=== PATIENT | male | born 1970 | race Caucasian/White ===

== ENCOUNTER → 2016-07-15 | Outpatient (CLI) | payer BC ==
[~2016-07-15] MED LIST: ASPCH81X PO; HYDR-5688 PO
[2016-07-15 18:45] LABS: HEMATOCRIT 41.2 % (42-52); MEAN CELL VOLUME 91.6 fL (80-100); MEAN CORPUSCULAR HEMOGLOBIN 31.1 pg (25-34); MEAN PLATELET VOLUME 10.4 fL (7.4-10.4); PLATELET COUNT 204 K/uL (130-400); WHITE BLOOD COUNT 5.17 K/uL (4.8-10.8)
[2016-07-15 19:12] LABS: BLOOD UREA NITROGEN 20 mg/dl (7-18); BUN/CREATININE RATIO 16.7 (10-20); CALCIUM 8.3 mg/dl (8.5-10.1); CARBON DIOXIDE 31 mmol/L (21-32); CHLORIDE 106 mmol/L (98-107); GLUCOSE 72 mg/dl (70-99); POTASSIUM 4.2 mmol/L (3.5-5.1); SODIUM 144 mmol/L (136-145)
[2016-07-15 21:03] LABS: BASO % 0.6 %; BASO ABS # 0.03 K/uL (0-0.2); COMPLETE YES; EOS % 4.8 %; LYMPH % 51.8 %; LYMPH ABS # 2.68 K/uL (1.2-3.4); MONO % 8.3 %; NEUT % 34.5 %
== END | disposition home or self-care (01) ==
LOC: C.LAB 18:15
PROVIDERS: ATTEND Surgery
DX: K40.90 Unilateral inguinal hernia, without obstruction or gangrene, not specified as recurrent (principal)

== ENCOUNTER → 2016-07-23 | Day surgery (SDC) | payer BC ==
[2016-07-13 07:35] VITALS: Ht 182.9 cm; Wt 79.5 kg
[~2016-07-23] VITALS: Ht 182.9 cm; Wt 79.5 kg
[~2016-07-23] MED LIST changes: +ATROPINE SULFATE 0.1 MG/ML 5ML SYR IV PRN; +BUPIVACAINE/EPINEPHRINE 0.5% MPF 1:200,000 30 ML VIAL ONE; +CEFAZOLIN 2000 MG/60 ML D5W IV SCH; +DEXAMETHASONE SOD INJ 4 MG/ML VIAL ONE; +EpHEDrine SULFATE INJ 50 MG/ML AMP IV PRN; +FENTANYL CITRATE INJ 50 MCG/1 ML 2 ML VIAL ONE; +FLUMAZENIL 0.1 MG/1 ML 10 ML VIAL IV PRN; +HEPARIN SOD 5000 UNIT/0.5 ML CARP SQ SCH; +HYDROCODONE/ACETAMOPHEN 5/325MG TAB PO PRN; +HYDROmorphone INJ 1 MG/ML SYR IV PRN; +IBUPROFEN 200 MG TAB ONE; +IBUPROFEN 600 MG TAB PO PRN; +KETOROLAC TROMETHAMINE 30 MG/ML VIAL IV. PRN; +KETOROLAC TROMETHAMINE 30 MG/ML VIAL ONE; +LACTATED RINGER'S 1000ML 1,000 ML IV SCH; +LIDOCAINE HCL 2% 2 ML VIAL (20MG/ML) ONE; +MIDAZOLAM HCL 1 MG/ML 2ML VIAL ONE; +NALOXONE HCL 0.4 MG/1 ML VIAL/CARP IV PRN; +ONDANSETRON INJ 2 MG/ML 2 ML VIAL IV PRN; +ONDANSETRON INJ 2 MG/ML 2 ML VIAL ONE; +PROMETHAZINE HCL INJ 12.5 MG in SODIUM CHLORIDE 0.9% 50ML 50 ML IV PRN; +PROPOFOL IV EMULSION 10 MG/ML 20 ML VIAL IV ONE; +SODIUM CHLORIDE 0.9% 1000ML 1,000 ML IV SCH
--- NOTE | 2016-07-23 07:35 | History and Physical ---
History & Physical Date Jul 23, 2016. Chief Complaint right groin pain History of Present Illness The patient is a 45 year old male with complaints of right groin pain. Us shows RIH. Additional History Hepatic Disease: No Endocrine Disorder: No Kidney Disease: No Hypertension: No Heart Disease: No Bleeding Tendencies: No Infectious Diseases: No Allergies Coded Allergies: BEE STING (Verified Allergy, Unknown, ITCHING, 07/23/16) NO KNOWN DRUG ALLERGIES (Verified Allergy, Unknown, ., 07/23/16) Home Medications Scheduled Aspirin (Aspirin Chewable), 81 MG PO QAM Physical Examination Skin: warm/dry Eyes: normal inspection, EOMI ENT: normal ENT inspection Head: normocephalic Neck: supple, no adenopathy Respiratory/Chest: normal breath sounds, no respiratory distress Cardiovascular: regular rate, rhythm, no edema Abdomen / GI: normal bowel sounds, + pertinent finding (right inguinal hernia. reduced. ) Extremities: normal inspection Diagnosis right inguinal hernia Plan of Treatment open right inguinal hernia repair with mesh.
--- NOTE | 2016-07-23 08:49 | Discharge Instructions ---
Discharge Instructions Admission Reason for Admission: Right Inguinal Hernia Discharge Discharge Diagnosis / Problem: Right inguinal hernia Discharge Goals Goal(s): Decrease discomfort, Improve function Activity Recommendations Activity Limitations: as noted below Lifting Limitations: no more than 5 pounds Exercise/Sports Limitations: until after follow-up appointment May Resume Sexual Activity: after follow-up appointment Shower/Bathe: tomorrow . Instructions / Follow-Up Instructions / Follow-Up Please follow-up with Dr. Velasquez in 1-2 weeks. Current Hospital Diet Patient's current hospital diet: Discharge Diet Recommended Diet: Regular Diet Pending Studies Studies pending at discharge: no Medical Emergencies . Who to Call and When: Medical Emergencies: If at any time you feel your situation is an emergency, please call 911 immediately. . Non-Emergent Contact Non-Emergency issues call your: Primary Care Provider, Surgeon Call Non-Emergent contact if: temperature is above 101, wound has increased drainage, wound has increased redness . "Provider Documentation" section prepared by Mishel Damian. VTE Core Measure Inpt VTE Proph given/why not?: Unfractionated heparin SQ, SCD's
--- NOTE | 2016-07-23 08:52 | [facility] Operative Report ---
Operative Report Operative Date Jul 23, 2016. Pre-Operative Diagnosis Right Inguinal Hernia Post-Operative Diagnosis direct and indirect inguinal hernia Procedure(s) Performed open right inguinal hernia repair with mesh Surgeon Dr. Velasquez Community Engagement Specialist Surgeon(s) Devonte Damian PA-C Estimated Blood Loss 5 ML Findings direct and indirect induinal hernia Specimens None Anesthesia LMA Complication(s) None Disposition Recovery Room / PACU I attest to the content of the Intraoperative Record and any orders documented therein. Any exceptions are noted below.
--- NOTE | 2016-07-23 09:20 | OPERATIVE REPORT ---
DATE OF OPERATION: 07/23/2016 PREOPERATIVE DIAGNOSIS: Right inguinal hernia. POSTOPERATIVE DIAGNOSIS: Direct and indirect right inguinal hernia. PROCEDURE: Open right inguinal hernia repair with mesh. SURGEON: Dr. Velasquez. [employer]CR[employer] PRODUCT OWNER: Mishel Damian PA-C. ESTIMATED BLOOD LOSS: 5 mL COMPLICATION: No immediate. ANESTHESIA: General with laryngeal mask airway. OPERATIVE NOTE: After informed consent was obtained, the patient taken to the operating suite and placed in supine position. After successful placement of laryngeal mask airway, the lower groin was shaved and sterilely prepped and draped in usual fashion. An inguinal incision was made with a 15 blade scalpel and carried down through the soft tissue using electrocautery. The external oblique aponeurosis was skeletonized and a small incision made with a fresh blade. Metzenbaum scissors were used to extend this incision through the external ring as well as several centimeters proximally. Once in the inguinal canal, we were able to bluntly dissect the cord and cord structures away from surrounding tissue. I was able to use a blunt finger to elevate the cord structures off the pubic bone and placed a [place] drain around them. As soon as we did this, we noted a small to moderate sized direct inguinal hernia coming through the floor of the canal. We also inspected the cord structures and noted a fat-containing hernia sac as well coming down the cord structures. We were able to bluntly dissect this back to its base and then dunk it back into the abdominal cavity. A small 2-0 Vicryl stitch was placed to hold the reduced sac in place until we put the mesh in. A polypropylene pre-keyholed mesh was used as an onlay. It was secured distally to Kwame's ligament, laterally along the shelving portion of Poupart's ligament, and medially along the midline musculature. The "arms" of the mesh were wrapped around behind the cord and cord structures and secured to underlying muscle. Thorough irrigation was performed, there was adequate hemostasis after doing this. The mesh was tension free and did not impinge on the cord structures. We injected the periphery of the mesh with Marcaine for postoperative analgesia. A final irrigation was performed. The external oblique aponeurosis was closed using 2-0 Vicryl in a running fashion. Soft tissue was irrigated and closed using 3-0 Vicryl. Skin was then closed using 4-0 Monocryl. Some additional Marcaine was injected around the incision for postoperative analgesia and skin glue used as dressing. The patient was awakened, extubated, and transferred to recovery in stable condition. I attest to the content of the Intraoperative Record and any orders documented therein. Any exceptio ns are noted below.
[2016-07-23 10:05] VITALS: TEMP 36.6
--- NOTE | 2016-07-23 10:18 | Anesthesia Progress Nt - [facility] ---
Anesthesia Post Op Note Date & Time Jul 23, 2016 at 10:18 Vital Signs Pain Intensity: 3 Vital Signs Past 12 Hours Date Time Temp Pulse Resp B/P Pulse Ox O2 Delivery O2 Flow Rate FiO2 07/23/16 09:45 62 23 95 07/23/16 09:45 62 23 07/23/16 09:45 62 23 07/23/16 09:45 62 23 95 07/23/16 09:43 125/82 07/23/16 09:43 125/82 07/23/16 09:42 36.4 60 18 125/82 96 Room Air 07/23/16 09:40 60 16 100 07/23/16 09:40 60 16 07/23/16 09:40 60 16 100 07/23/16 09:40 60 16 07/23/16 09:38 130/78 07/23/16 09:38 130/78 07/23/16 09:33 123/83 07/23/16 09:33 123/83 07/23/16 09:30 65 11 99 07/23/16 09:30 65 11 99 07/23/16 09:30 62 10 100 07/23/16 09:30 62 10 100 07/23/16 09:28 127/84 07/23/16 09:28 127/84 07/23/16 09:25 65 18 07/23/16 09:25 67 18 96 07/23/16 09:25 65 18 07/23/16 09:25 67 18 96 07/23/16 09:23 130/82 07/23/16 09:23 130/82 07/23/16 09:18 128/79 07/23/16 09:18 128/79 07/23/16 09:15 62 16 96 07/23/16 09:15 62 16 96 07/23/16 09:15 63 16 96 07/23/16 09:15 63 16 96 07/23/16 09:13 127/82 07/23/16 09:13 127/82 07/23/16 09:10 68 19 07/23/16 09:10 68 19 07/23/16 09:10 68 19 99 07/23/16 09:10 68 19 99 07/23/16 09:08 124/81 07/23/16 09:08 124/81 07/23/16 09:03 120/77 07/23/16 09:03 120/77 07/23/16 09:00 60 15 100 07/23/16 09:00 60 14 100 07/23/16 09:00 60 14 100 07/23/16 09:00 60 15 100 07/23/16 08:58 121/76 07/23/16 08:58 121/76 07/23/16 08:55 60 11 07/23/16 08:55 61 11 100 07/23/16 08:55 61 11 100 07/23/16 08:55 60 11 07/23/16 08:53 120/76 07/23/16 08:53 120/76 07/23/16 08:50 36.4 65 16 127/79 98 Diffusion Mask 6 07/23/16 06:55 36.8 58 16 144/90 97 Room Air Notes Mental Status: alert / awake / arousable, participated in evaluation Pt Amnestic to Procedure: Yes Nausea / Vomiting: adequately controlled Pain: adequately controlled Airway Patency, RR, SpO2: stable & adequate BP & HR: stable & adequate Hydration State: stable & adequate Anesthetic Complications: no major complications apparent
[2016-07-23 10:42] VITALS: BP 127/80; PULSE 65; O2SAT 97
== END | disposition home or self-care (01) ==
LOC: X.SURG 06:46
PROVIDERS: ATTEND Surgery
DX: K40.90 Unilateral inguinal hernia, without obstruction or gangrene, not specified as recurrent (principal)